=== PATIENT | female | born 1975 | race Caucasian/White ===

== ENCOUNTER 2016-08-03 07:29 | Observation (INO) | payer BC ==
[~2016-08-03] VITALS: Ht 154.9 cm; Wt 63.6 kg
[2016-08-03] MEDS ORDERED: ASPIRIN 81 MG CHEW TAB ONE (07:36)
[2016-08-03] MEDS ORDERED: NITROGLYCERIN 2% OINT 1 INCH PKT TOPICAL ONE (08:14)
[2016-08-03] MEDS ORDERED: cloNIDine 0.1 MG TAB ONE (09:10)
[2016-08-03] MEDS ORDERED: ONDANSETRON 4 MG VIAL ONE (09:10)
[2016-08-03] MEDS ORDERED: MORPHINE 2 MG/ML SYR ONE (09:11)
[2016-08-03] MEDS ORDERED: LORAZEPAM 0.5 MG TAB PO PRN (09:55)
[2016-08-03] MEDS ORDERED: TEMAZEPAM 15 MG CAP PO PRN (09:55)
[2016-08-03] MEDS ORDERED: NITROGLYCERIN SL 0.4 MG TAB SL PRN (09:55)
[2016-08-03] MEDS ORDERED: ACETAMINOPHEN 325 MG TAB PO PRN (09:55)
[2016-08-03] MEDS ORDERED: ALU/MAG/SIM 30 ML UDC PO PRN (09:55)
[2016-08-03] MEDS ORDERED: TEMAZEPAM 7.5 MG CAP PO PRN (09:55)
[2016-08-03] MEDS ORDERED: MORPHINE 2 MG/ML SYR IV PRN (09:55)
[2016-08-03] MEDS ORDERED: DOCUSATE SOD 100 MG CAP PO PRN (09:55)
[2016-08-03] MEDS ORDERED: LISINOPRIL 20 MG TAB PO ONE (10:05)
[2016-08-03 11:54] VITALS: BP_SYST 107; BP_SYST 119; RESP 18; TEMP 97.5
[2016-08-03 11:55] VITALS: Ht 154.9 cm; Wt 63.6 kg
[2016-08-03] MEDS: NITROGLYCERIN 2% OINT 1 INCH PKT TOPICAL SCH ×2 (11:55→16:01)
[2016-08-03] MEDS: TRAMADOL 50 MG TAB PO PRN ×2 (12:04→20:53)
[2016-08-03] MEDS: LISINOPRIL/HCTZ 10/12.5 TAB PO SCH (12:04)
[2016-08-03] MEDS ORDERED: KETOROLAC 30 MG/ML VIAL IV ONE (14:15)
[2016-08-03 14:26] VITALS: RESP 20
[2016-08-03] MEDS: ONDANSETRON 4 MG VIAL IV PRN (14:31)
[2016-08-03 15:08] VITALS: BP_SYST 102; RESP 18; TEMP 97.6
[2016-08-03 19:28] VITALS: BP_SYST 101; RESP 18; TEMP 97.5
[2016-08-03 23:43] VITALS: BP_SYST 100; RESP 17; TEMP 97.4
[2016-08-04] MEDS: TRAMADOL 50 MG TAB PO PRN ×2 (00:15→08:25)
[2016-08-04 03:08] VITALS: BP_SYST 88; RESP 18; TEMP 97.8
[2016-08-04] MEDS: NITROGLYCERIN 2% OINT 1 INCH PKT TOPICAL SCH ×2 (06:00)
[2016-08-04 07:00] VITALS: BP_SYST 96; RESP 16; TEMP 97.5
[2016-08-04] MEDS: ONDANSETRON 4 MG VIAL IV PRN (07:29)
[2016-08-04] MEDS ORDERED: ASPIRIN 81 MG CHEW TAB PO SCH (08:00)
[2016-08-04] MEDS: LISINOPRIL/HCTZ 10/12.5 TAB PO SCH (09:00)
[2016-08-04 10:19] VITALS: BP_SYST 96; RESP 16; TEMP 97.5
== END 2016-08-04 09:11 | disposition home or self-care (01) ==
LOC: ENRESERVTM → ENRESERVDT → ER 07:29 → EMR 09:55 → ENPENDDIS 09:55 → PCU 11:04
PROVIDERS: ADMIT Internal Medicine Cardiovascular Disease; ATTEND Internal Medicine Cardiovascular Disease
DX: I10 Essential (primary) hypertension (principal); N28.9 Disorder of kidney and ureter, unspecified; I20.9 Angina pectoris, unspecified
CPT/HCPCS: 36415; 71010; 80053; 80061; 82550; 82553; 83735; 84484; 85025; 85610; 85730; 93005; 94799; 96374; 96375